=== PATIENT | female | born 1985 | race Caucasian/White ===

== ENCOUNTER 2025-05-25 02:54 | Emergency (ER) | payer BC ==
[2025-05-25 03:36] LABS: Glucose, Urine (Dipstick) Negative (Negative); Leukocyte Trace (Negative); Protein, Urine (Dipstick) Negative (Neg-Trace); Specific Gravity, Urine 1.015 (1.005-1.030)
[2025-05-25 03:39] LABS: Pregnancy Test - Urine (BHCG) Negative (Negative); Pregu Control Background? CLEAR/WHITE (CLR/WHITE); Pregu Control Bar Appear? YES (CONTROL BAR)
[2025-05-25 03:40] LABS: CAUTI Indications for Culture Pelvic or flank pain
[2025-05-25 03:41] LABS: Bacteria/HPF Rare-Few HPF (None Seen)
[2025-05-25] MEDS ORDERED: Tranexamic Acid 1,000 MG/10 ML VIAL ONE (03:41)
[2025-05-25] MEDS ORDERED: Ketorolac Tromethamine 30 MG (1 mL) VIAL ONE (03:41)
[2025-05-25 03:42] LABS: Urine Culture Reflex No No
[2025-05-25 03:50] LABS: #Basophils 0.2 thou/uL (0.0-0.2); #Eosinophils 0.2 thou/uL (0.0-0.7); #Lymphocytes 4.2 thou/uL (1.20-3.40); #Monocytes 0.4 thou/uL (0.11-0.59); #Neutrophils 5.6 thou/uL (1.40-6.50); %Basophils 2.1 % (0.0-1.0); %Eosinophils 1.9 % (0.0-10.0); %Lymphocytes 39.3 % (21.0-51.0); %Monocytes 4.1 % (0.0-10.0); %Neutrophils 52.6 % (42.0-75.0); Hematocrit 37.4 % (36.0-47.0); Hemoglobin 12.2 g/dL (12.0-16.0); Mean Corpuscular Hemoglobin 28.8 pg (27.0-31.0); Mean Corpuscular Volume 88.4 fl (78.0-98.0); Platelet Count 238 10x3/uL (130-400); Red Blood Cell (RBC) Count 4.23 mill/uL (4.20-5.40); White Blood Cell (WBC) Count 10.7 10x3/uL (4.8-10.8)
[2025-05-25 04:05] LABS: Bicarbonate (HCO3v) 24.5 mmol/L (22.0-28.0); CO2 Tension (PvCO2) 35.1 mmHg (42.0-51.0); Calcium, Ionized 1.24 mmol/L (1.15-1.33); Chloride 110 mmol/L (98-107); Hemoglobin - Calc 13.3 g/dL (12.0-16.0); Potassium 3.9 mmol/L (3.5-5.1); Sodium 142 mmol/L (138-145); T. Carbon Dioxide 25.6 mmol/L (22.0-28.0); vO2 Saturation-calc 98.6 % (60.0-85.0)
== END 2025-05-25 05:16 | disposition home or self-care (01) ==
LOC: MADERS 02:54
DX: N92.0 Excessive and frequent menstruation with regular cycle (principal); E11.9 Type 2 diabetes mellitus without complications; E66.9 Obesity, unspecified; E28.2 Polycystic ovarian syndrome; L73.2 Hidradenitis suppurativa; F32.A Depression, unspecified; F41.9 Anxiety disorder, unspecified; F17.210 Nicotine dependence, cigarettes, uncomplicated; Z79.84 Long term (current) use of oral hypoglycemic drugs; Z79.85 Long-term (current) use of injectable non-insulin antidiabetic drugs
CPT/HCPCS: 81001; 81025; 82330; 82435; 82803; 84132; 84295; 85014; 85025; 96365; 96375; J1885; J7030